=== PATIENT | female | born 1940 | race Caucasian/White ===

== ENCOUNTER → 2017-07-18 | Outpatient (CLI) | payer OTHER | END | disposition home or self-care (01) | LOC: CP 08:50 | DX: J44.1 Chronic obstructive pulmonary disease with (acute) exacerbation (principal) ==

== ENCOUNTER 2020-03-21 19:53 | Inpatient (IN) | payer MEDICARE ==
[~2020-03-21] VITALS: Ht 157.4 cm; Wt 47.6 kg
[2020-03-21 19:55] VITALS: BP 114/66
[2020-03-21] MEDS ORDERED: ALENDRONATE SOD70 M1 PO (22:04)
[2020-03-21] MEDS ORDERED: SERTRALINE HYDR25 MG PO (22:05)
[2020-03-21] MEDS ORDERED: OXYCODONE HCL5 MG PO (22:05)
[2020-03-21] MEDS ORDERED: DEXAMETHASONE4 MG PO (22:05)
[2020-03-21] MEDS ORDERED: LORAZEPAM0.5 MG PO (22:06)
[2020-03-21] MEDS ORDERED: ANORO ELLIPTA1 EACH PO (22:06)
[2020-03-21] MEDS ORDERED: OMEPRAZOLE40 MG PO (22:07)
[2020-03-21] MEDS ORDERED: HYDROXYUREA500 MG PO (22:07)
[2020-03-21] MEDS ORDERED: ATORVASTATIN CA20 M1 PO (22:07)
[2020-03-21 22:08] VITALS: BP 115/50
[2020-03-21 23:26] VITALS: BP 90/56
[2020-03-22] VITALS (15 sets, daily range): BP systolic 86–110; BP diastolic 30–67
[2020-03-22 04:25] LABS: MEAN CELL VOLUME 113.7 fl (81.0-99.0); MEAN CORPUSCULAR HGB 35.7 pg (27.0-31.0); MEAN CORPUSCULAR HGB CONC 31.4 g/dl (33.0-37.0); MEAN PLATELET VOLUME 9.4 fl (9.6-12.3); PLATELET COUNT AUTOMATED 276 10*3/uL (130-400); RED BLOOD COUNT 2.55 10*6/uL (4.10-5.10); RED CELL DISTRI WIDTH 13.5 % (0-14.5); WHITE BLOOD COUNT 33.4 10*3/uL (4.8-10.8)
[2020-03-22 04:42] LABS: ALBUMIN 2.8 gm/dl (3.1-4.5); ALKALINE PHOSPHATASE 57 U/L (45-117); BUN 20 mg/dl (7-24); CHLORIDE 105 mmol/L (98-107); CREATININE 0.69 mg/dL (0.55-1.02); POTASSIUM 4.2 mmol/L (3.5-5.1); SGOT/AST 14 IU/L (3-35); SGPT/ALT 34 U/L (12-78); SODIUM 139 mmol/L (136-145); TOTAL PROTEIN 5.1 gm/dL (6.4-8.2)
[2020-03-22 04:59] LABS: TOTAL CELLS COUNTED 100 #CELLS
[2020-03-22 05:00] LABS: PLATELET SUFFICIENCY NORMAL (NORMAL)
[2020-03-23] VITALS (10 sets, daily range): BP systolic 93–135; BP diastolic 48–60
[2020-03-23 06:49] LABS: MEAN CELL VOLUME 115.3 fl (81.0-99.0); MEAN CORPUSCULAR HGB 36.4 pg (27.0-31.0); MEAN CORPUSCULAR HGB CONC 31.5 g/dl (33.0-37.0); MEAN PLATELET VOLUME 9.7 fl (9.6-12.3); RED BLOOD COUNT 1.76 10*6/uL (4.10-5.10); RED CELL DISTRI WIDTH 13.7 % (0-14.5); WHITE BLOOD COUNT 15.7 10*3/uL (4.8-10.8)
[2020-03-23 07:01] LABS: HEMATOCRIT 20.3 % (37.0-47.0)
[2020-03-23 07:15] LABS: OVALOCYTES FEW; PLATELET SUFFICIENCY NORMAL (NORMAL); TOTAL CELLS COUNTED 100 #CELLS; TOXIC GRANULATION SLIGHT
[2020-03-23 07:16] LABS: PLATELET COUNT AUTOMATED 151 10*3/uL (130-400)
[2020-03-23 16:40] LABS: HEMATOCRIT 24.7 % (37.0-47.0); MEAN CORPUSCULAR HGB 34.3 pg (27.0-31.0); MEAN PLATELET VOLUME 9.6 fl (9.6-12.3); PLATELET COUNT AUTOMATED 141 10*3/uL (130-400); RED CELL DISTRI WIDTH 16.3 % (0-14.5); WHITE BLOOD COUNT 16.7 10*3/uL (4.8-10.8)
[2020-03-23 16:58] LABS: MEAN CELL VOLUME 107.4 fl (81.0-99.0)
[2020-03-23 17:04] LABS: PLATELET SUFFICIENCY NORMAL (NORMAL); TOTAL CELLS COUNTED 100 #CELLS
[2020-03-24] VITALS: BP 102/57
[2020-03-24 08:00] VITALS: BP 113/56
[2020-03-24 12:00] VITALS: BP 127/69
[2020-03-24 16:00] VITALS: BP 117/48
[2020-03-24 20:00] VITALS: BP 105/54
[2020-03-25] VITALS: BP 111/54
[2020-03-25 06:17] LABS: HEMATOCRIT 23.3 % (37.0-47.0); MEAN CELL VOLUME 106.9 fl (81.0-99.0); MEAN CORPUSCULAR HGB 33.9 pg (27.0-31.0); MEAN CORPUSCULAR HGB CONC 31.8 g/dl (33.0-37.0); MEAN PLATELET VOLUME 9.5 fl (9.6-12.3); PLATELET COUNT AUTOMATED 164 10*3/uL (130-400); RED BLOOD COUNT 2.18 10*6/uL (4.10-5.10); RED CELL DISTRI WIDTH 15.2 % (0-14.5); WHITE BLOOD COUNT 13.7 10*3/uL (4.8-10.8)
[2020-03-25 07:15] LABS: TOTAL CELLS COUNTED 100 #CELLS
[2020-03-25 07:16] LABS: OVALOCYTES FEW; PLATELET SUFFICIENCY NORMAL (NORMAL)
[2020-03-25 08:00] VITALS: BP 149/51
[2020-03-25 12:00] VITALS: BP 146/74
[2020-03-25 16:00] VITALS: BP 146/68
[2020-03-25 20:00] VITALS: BP 110/59
[2020-03-26] VITALS (10 sets, daily range): BP systolic 105–131; BP diastolic 50–66
[2020-03-26 06:23] LABS: HEMATOCRIT 22.1 % (37.0-47.0); MEAN CORPUSCULAR HGB 34.8 pg (27.0-31.0); MEAN CORPUSCULAR HGB CONC 31.2 g/dl (33.0-37.0); MEAN PLATELET VOLUME 9.6 fl (9.6-12.3); PLATELET COUNT AUTOMATED 175 10*3/uL (130-400); RED BLOOD COUNT 1.98 10*6/uL (4.10-5.10); RED CELL DISTRI WIDTH 15.4 % (0-14.5); WHITE BLOOD COUNT 11.5 10*3/uL (4.8-10.8)
[2020-03-26 06:27] LABS: MEAN CELL VOLUME 111.6 fl (81.0-99.0)
[2020-03-26 07:30] LABS: OVALOCYTES FEW; PLATELET SUFFICIENCY NORMAL (NORMAL); POLYCHROMASIA SLIGHT; TOTAL CELLS COUNTED 100 #CELLS
[2020-03-26 07:31] LABS: TOXIC GRANULATION SLIGHT
[2020-03-26 14:54] LABS: HEMATOCRIT 27.9 % (37.0-47.0); MEAN CORPUSCULAR HGB 33.1 pg (27.0-31.0); MEAN CORPUSCULAR HGB CONC 32.3 g/dl (33.0-37.0); MEAN PLATELET VOLUME 9.2 fl (9.6-12.3); NUCLEATED RED BLOOD CELL 0.2 % (0.0-0.0); PLATELET COUNT AUTOMATED 174 10*3/uL (130-400); RED BLOOD COUNT 2.72 10*6/uL (4.10-5.10); RED CELL DISTRI WIDTH 19.2 % (0-14.5); WHITE BLOOD COUNT 12.9 10*3/uL (4.8-10.8)
[2020-03-26 14:58] LABS: MEAN CELL VOLUME 102.6 fl (81.0-99.0)
[2020-03-26 15:16] LABS: PLATELET SUFFICIENCY NORMAL (NORMAL); TOTAL CELLS COUNTED 100 #CELLS
[2020-03-27] VITALS: BP 123/61
[2020-03-27 08:00] VITALS: BP 120/64
[2020-03-27 08:33] LABS: BASO % 0.2 % (0.0-1.0); HEMATOCRIT 28.2 % (37.0-47.0); LYMPH # 0.7 10*3/uL (1.3-4.4); LYMPH % 5.8 % (27.0-41.0); MEAN CELL VOLUME 104.4 fl (81.0-99.0); MEAN CORPUSCULAR HGB 33.7 pg (27.0-31.0); MEAN CORPUSCULAR HGB CONC 32.3 g/dl (33.0-37.0); MONO # 0.7 10*3/uL (0.1-1.0); MONO % 6.3 % (3.0-9.0); NEUT % 86.3 % (47.0-73.0); PLATELET COUNT AUTOMATED 176 10*3/uL (130-400); RED CELL DISTRI WIDTH 18.5 % (0-14.5); WHITE BLOOD COUNT 11.6 10*3/uL (4.8-10.8)
[2020-03-27] MEDS ORDERED: LORAZEPAM0.5 MG PO (10:36)
[2020-03-27] MEDS ORDERED: HYDROCODONE-AC1 EAC1 PO (10:36)
[2020-03-27] MEDS ORDERED: ASPIRIN ADULT L81 M2 PO (10:36)
[2020-03-27] MEDS ORDERED: VITAMIN D350 MC2 PO (10:36)
[2020-03-27 12:00] VITALS: BP 125/55
== END 2020-03-27 15:05 | DRG 480 ==
LOC: ED 19:53 → 5E 21:54 → EDHOLD 21:54 → 5E 03-22 08:53
PROVIDERS: Internal Medicine; Orthopaedic Surgery; Registered Nurse; Social Worker Clinical; Student in an Organized Health Care Education/Training Program; ADMIT Internal Medicine; ATTEND Internal Medicine
PROC: 0QS706Z Reposition Left Upper Femur with Intramedullary Internal Fixation Device, Open Approach (ICD-10-PCS; principal; 2020-03-22)
PROC: 30233N1 Transfusion of Nonautologous Red Blood Cells into Peripheral Vein, Percutaneous Approach (ICD-10-PCS; 2020-03-23)
DX: S72.142A Displaced intertrochanteric fracture of left femur, initial encounter for closed fracture (principal); E43 Unspecified severe protein-calorie malnutrition; J96.10 Chronic respiratory failure, unspecified whether with hypoxia or hypercapnia; Z68.1 Body mass index [BMI] 19.9 or less, adult; D53.0 Protein deficiency anemia; M54.5 Low back pain; M81.0 Age-related osteoporosis without current pathological fracture; J44.9 Chronic obstructive pulmonary disease, unspecified; W01.0XXA Fall on same level from slipping, tripping and stumbling without subsequent striking against object, initial encounter; Y93.01 Activity, walking, marching and hiking; G89.29 Other chronic pain; Z96.642 Presence of left artificial hip joint; K21.9 Gastro-esophageal reflux disease without esophagitis; E78.5 Hyperlipidemia, unspecified; Z20.822 Contact with and (suspected) exposure to COVID-19; Z99.81 Dependence on supplemental oxygen; Z79.899 Other long term (current) drug therapy; Y92.89 Other specified places as the place of occurrence of the external cause; Y99.8 Other external cause status; Z90.710 Acquired absence of both cervix and uterus; Z98.891 History of uterine scar from previous surgery; Z87.891 Personal history of nicotine dependence

== ENCOUNTER → 2020-04-05 | Outpatient (CLI) | payer MEDICARE ==
[~2020-04-05] MED LIST: ALENDRONATE SOD70 M1 PO; ANORO ELLIPTA1 EACH PO; ASPIRIN ADULT L81 M2 PO; ATORVASTATIN CA20 M1 PO; DEXAMETHASONE4 MG PO; HYDROCODONE-AC1 EAC1 PO; HYDROXYUREA500 MG PO; LORAZEPAM0.5 MG PO; OMEPRAZOLE40 MG PO; OXYCODONE HCL5 MG PO; SERTRALINE HYDR25 MG PO; VITAMIN D350 MC2 PO
== END | disposition home or self-care (01) ==
LOC: ORTHO 00:18
PROVIDERS: ATTEND Orthopaedic Surgery
DX: S72.142D Displaced intertrochanteric fracture of left femur, subsequent encounter for closed fracture with routine healing (principal); X58.XXXD Exposure to other specified factors, subsequent encounter

== ENCOUNTER → 2020-05-03 | Outpatient (CLI) | payer MEDICARE | END | disposition home or self-care (01) | LOC: ORTHO 00:20 | PROVIDERS: ATTEND Orthopaedic Surgery | DX: M85.88 Other specified disorders of bone density and structure, other site (principal); S72.142D Displaced intertrochanteric fracture of left femur, subsequent encounter for closed fracture with routine healing; X58.XXXD Exposure to other specified factors, subsequent encounter ==

== ENCOUNTER 2021-10-18 06:42 | Inpatient (IN) | payer MEDICARE, MEDICAID ==
[2021-10-18] VITALS (24 sets, daily range): BP systolic 84–124; BP diastolic 33–82
[~2021-10-18] VITALS: Ht 160 cm; Wt 34.5 kg
[2021-10-18 07:26] LABS: MEAN CELL VOLUME 106.8 fl (81.0-99.0); MEAN CORPUSCULAR HGB 30.7 pg (27.0-31.0); MEAN CORPUSCULAR HGB CONC 28.7 g/dl (33.0-37.0); MEAN PLATELET VOLUME 9.2 fl (9.6-12.3); NUCLEATED RED BLOOD CELL 0.1 10*3/uL (0.0-0.0); NUCLEATED RED BLOOD CELL 0.9 % (0.0-0.0); PLATELET COUNT AUTOMATED 54 10*3/uL (130-400); RED BLOOD COUNT 0.88 10*6/uL (4.10-5.10); RED CELL DISTRI WIDTH 22.5 % (0-14.5); WHITE BLOOD COUNT 14.1 10*3/uL (4.8-10.8)
[2021-10-18 07:28] LABS: MANUAL DIFF REFLEX YES
[2021-10-18 07:29] LABS: HEMATOCRIT 9.4 % (37.0-47.0)
[2021-10-18 07:42] LABS: CREATININE 1.43 mg/dL (0.55-1.02); POTASSIUM 3.7 mmol/L (3.5-5.1); TOTAL PROTEIN 5.8 gm/dL (6.4-8.2)
[2021-10-18 07:59] LABS: OVALOCYTES FEW; PLATELET SUFFICIENCY LOW (NORMAL); POLYCHROMASIA SLIGHT; ROULEAUX SLIGHT; SCHISTOCYTES FEW; TOTAL CELLS COUNTED 100 #CELLS
[2021-10-18 08:20] LABS: INTERNATIONAL NORM RATIO 1.1 (2.0-3.5)
[2021-10-18] MEDS ORDERED: ELIQUIS5 M1 PO (16:25)
[2021-10-18] MEDS ORDERED: ARICEPT5 M1 PO (16:25)
[2021-10-18] MEDS ORDERED: PROVENTIL HFA6.7 GM INH (16:27)
[2021-10-18] MEDS ORDERED: ZOLOFT50 MG PO (16:29)
[2021-10-18] MEDS ORDERED: XANAX0.25 MG PO (16:37)
[2021-10-18] MEDS ORDERED: PROBIOTIC (16:38)
[2021-10-18] MEDS ORDERED: CRANBERRY (16:38)
[2021-10-18] MEDS ORDERED: BACTRIM (17:29)
[2021-10-18 19:08] LABS: BILIRUBIN Negative (Negative); BLOOD 2+ (Negative); CLARITY Clear (Clear); COLOR Yellow (Yellow); GLUCOSE Negative (Negative); KETONE Negative (Negative); LEUKO ESTERASE Negative (Negative); NITRITE Negative (Negative); PH 6.5 (4.5-8.0)
[2021-10-18 19:10] LABS: HEMATOCRIT 25.5 % (37.0-47.0); MEAN CORPUSCULAR HGB CONC 34.5 g/dl (33.0-37.0); MEAN PLATELET VOLUME 9.5 fl (9.6-12.3); NUCLEATED RED BLOOD CELL 0.3 % (0.0-0.0); RED BLOOD COUNT 2.84 10*6/uL (4.10-5.10); RED CELL DISTRI WIDTH 14.8 % (0-14.5); WHITE BLOOD COUNT 11.9 10*3/uL (4.8-10.8)
[2021-10-18 19:14] LABS: MEAN CELL VOLUME 89.8 fl (81.0-99.0)
[2021-10-18 19:16] LABS: MANUAL DIFF REFLEX YES; PLATELET COUNT AUTOMATED 28 10*3/uL (130-400)
[2021-10-18 19:22] LABS: BUN 42 mg/dl (7-24); CHLORIDE 104 mmol/L (98-107); CREATININE 0.92 mg/dL (0.55-1.02); SODIUM 135 mmol/L (136-145)
[2021-10-18 19:25] LABS: BACTERIA 1+; RBC 16-20 rbc/hpf (0-2)
[2021-10-18 19:37] LABS: PLATELET SUFFICIENCY LOW (NORMAL); TOTAL CELLS COUNTED 100 #CELLS
[2021-10-18 19:38] LABS: BURR CELLS FEW
[2021-10-18 19:39] LABS: MICROCYTOSIS SLIGHT
[2021-10-18 23:23] LABS: HEMATOCRIT 24.8 % (37.0-47.0); MEAN CELL VOLUME 91.5 fl (81.0-99.0); MEAN CORPUSCULAR HGB CONC 33.9 g/dl (33.0-37.0); MEAN PLATELET VOLUME 9.2 fl (9.6-12.3); NUCLEATED RED BLOOD CELL 0.4 % (0.0-0.0); RED BLOOD COUNT 2.71 10*6/uL (4.10-5.10); RED CELL DISTRI WIDTH 15.6 % (0-14.5)
[2021-10-18 23:46] LABS: MANUAL DIFF REFLEX YES; PLATELET COUNT AUTOMATED 25 10*3/uL (130-400)
[2021-10-18 23:49] LABS: MICROCYTOSIS SLIGHT; PLATELET SUFFICIENCY LOW (NORMAL); TOTAL CELLS COUNTED 100 #CELLS
[2021-10-19] VITALS (16 sets, daily range): BP systolic 91–127; BP diastolic 33–61
[2021-10-19 05:37] LABS: ALKALINE PHOSPHATASE 49 U/L (45-117); BUN 32 mg/dl (7-24); CHLORIDE 108 mmol/L (98-107); CHOLESTEROL 113 mg/dL (<200); CREATININE 0.73 mg/dL (0.55-1.02); LDL CHOLESTEROL 48 mg/dL (9-159); POTASSIUM 4.1 mmol/L (3.5-5.1); SGOT/AST 18 IU/L (3-35); SGPT/ALT 13 U/L (12-78); SODIUM 142 mmol/L (136-145); TOTAL PROTEIN 5.1 gm/dL (6.4-8.2); TRIGLYCERIDES 109 mg/dl (<150)
[2021-10-19 05:40] LABS: FREE T4 0.82 ng/dl (0.76-1.46)
[2021-10-19 06:17] LABS: ACT PARTIAL THROMBO TIME 21.7 SECONDS (20.0-32.1)
[2021-10-19 06:53] LABS: HEMATOCRIT 24.6 % (37.0-47.0); MEAN CELL VOLUME 92.8 fl (81.0-99.0); MEAN CORPUSCULAR HGB 30.9 pg (27.0-31.0); MEAN CORPUSCULAR HGB CONC 33.3 g/dl (33.0-37.0); MEAN PLATELET VOLUME 10.7 fl (9.6-12.3); NUCLEATED RED BLOOD CELL 0.3 % (0.0-0.0); RED BLOOD COUNT 2.65 10*6/uL (4.10-5.10); RED CELL DISTRI WIDTH 16.1 % (0-14.5)
[2021-10-19 06:57] LABS: MANUAL DIFF REFLEX YES
[2021-10-19 06:58] LABS: PLATELET COUNT AUTOMATED 83 10*3/uL (130-400)
[2021-10-19 07:00] LABS: TOTAL CELLS COUNTED 100 #CELLS
[2021-10-19 07:01] LABS: BURR CELLS FEW; OVALOCYTES FEW; PLATELET SUFFICIENCY LOW (NORMAL); POLYCHROMASIA SLIGHT; ROULEAUX SLIGHT; SCHISTOCYTES FEW; TOXIC GRANULATION SLIGHT
[2021-10-19 07:58] LABS: VITAMIN D, 25-HYDROXY 70.1 ng/mL (30-100)
[2021-10-20] VITALS: BP 119/52
[2021-10-20 05:13] LABS: CHLORIDE 108 mmol/L (98-107); CREATININE 0.47 mg/dL (0.55-1.02); SGOT/AST 18 IU/L (3-35); SGPT/ALT 12 U/L (12-78); SODIUM 143 mmol/L (136-145)
[2021-10-20 05:14] LABS: ALKALINE PHOSPHATASE 50 U/L (45-117); TOTAL PROTEIN 4.7 gm/dL (6.4-8.2)
[2021-10-20 05:18] LABS: BUN 13 mg/dl (7-24)
[2021-10-20 06:12] LABS: HEMATOCRIT 24.7 % (37.0-47.0); MEAN CELL VOLUME 93.6 fl (81.0-99.0); MEAN CORPUSCULAR HGB 31.4 pg (27.0-31.0); MEAN CORPUSCULAR HGB CONC 33.6 g/dl (33.0-37.0); MEAN PLATELET VOLUME 10.9 fl (9.6-12.3); NUCLEATED RED BLOOD CELL 0.3 % (0.0-0.0); PLATELET COUNT AUTOMATED 68 10*3/uL (130-400); RED BLOOD COUNT 2.64 10*6/uL (4.10-5.10); RED CELL DISTRI WIDTH 16.5 % (0-14.5); WHITE BLOOD COUNT 9.7 10*3/uL (4.8-10.8)
[2021-10-20 06:17] LABS: MANUAL DIFF REFLEX YES
[2021-10-20 06:43] LABS: TOTAL CELLS COUNTED 100 #CELLS
[2021-10-20 06:44] LABS: BURR CELLS FEW; OVALOCYTES FEW; PLATELET SUFFICIENCY LOW (NORMAL); POLYCHROMASIA SLIGHT; SCHISTOCYTES FEW; TOXIC GRANULATION SLIGHT
[2021-10-20 08:00] VITALS: BP 114/56
[2021-10-20 12:00] VITALS: BP 115/47
[2021-10-20 16:00] VITALS: BP 125/52
[2021-10-20 20:00] VITALS: BP 113/62
[2021-10-21] VITALS: BP 113/27
[2021-10-21 03:06] LABS: TOTAL PROTEIN, SERUM 4.6 g/dL (6.0-8.5)
[2021-10-21 05:58] LABS: BUN 5 mg/dl (7-24); CHLORIDE 109 mmol/L (98-107); CREATININE 0.39 mg/dL (0.55-1.02); POTASSIUM 3.5 mmol/L (3.5-5.1); SODIUM 142 mmol/L (136-145)
[2021-10-21 06:13] LABS: HEMATOCRIT 27.4 % (37.0-47.0); MEAN CORPUSCULAR HGB CONC 31.8 g/dl (33.0-37.0); MEAN PLATELET VOLUME 10.6 fl (9.6-12.3); NUCLEATED RED BLOOD CELL 0.2 % (0.0-0.0); PLATELET COUNT AUTOMATED 66 10*3/uL (130-400); RED BLOOD COUNT 2.81 10*6/uL (4.10-5.10); RED CELL DISTRI WIDTH 16.4 % (0-14.5); WHITE BLOOD COUNT 9.1 10*3/uL (4.8-10.8)
[2021-10-21 06:20] LABS: MANUAL DIFF REFLEX YES; MEAN CELL VOLUME 97.5 fl (81.0-99.0)
[2021-10-21 07:08] LABS: PLATELET SUFFICIENCY LOW (NORMAL); TOTAL CELLS COUNTED 100 #CELLS
[2021-10-21 08:00] VITALS: BP 130/47
[2021-10-21 12:00] VITALS: BP 112/41
[2021-10-21 16:00] VITALS: BP 133/66
[2021-10-21 16:07] LABS: A/G RATIO 1.4 (0.7-1.7); ALBUMIN 2.7 g/dL (2.9-4.4); ALPHA-1-GLOBULIN 0.3 g/dL (0.0-0.4); ALPHA-2-GLOBULIN 0.5 g/dL (0.4-1.0); BETA GLOBULIN 0.7 g/dL (0.7-1.3); GAMMA GLOBULIN 0.5 g/dL (0.4-1.8); GLOBULIN, TOTAL 1.9 g/dL (2.2-3.9); M-SPIKE 0.1 g/dL (Not Observed)
[2021-10-22] VITALS: BP 128/55
[2021-10-22 04:00] VITALS: BP 128/55
[2021-10-22 08:00] VITALS: BP 136/71
[2021-10-22 12:00] VITALS: BP 107/51
[2021-10-22 14:00] VITALS: BP 138/47
[2021-10-22 20:00] VITALS: BP 106/51
[2021-10-23] VITALS: BP 109/56
[2021-10-23 05:40] LABS: BUN 2 mg/dl (7-24); CHLORIDE 109 mmol/L (98-107); CREATININE 0.43 mg/dL (0.55-1.02); POTASSIUM 3.5 mmol/L (3.5-5.1); SODIUM 145 mmol/L (136-145)
[2021-10-23 06:21] LABS: HEMATOCRIT 25.9 % (37.0-47.0); MEAN CELL VOLUME 98.1 fl (81.0-99.0); MEAN CORPUSCULAR HGB 31.4 pg (27.0-31.0); MEAN PLATELET VOLUME 11.2 fl (9.6-12.3); RED BLOOD COUNT 2.64 10*6/uL (4.10-5.10)
[2021-10-23 06:31] LABS: MANUAL DIFF REFLEX YES; PLATELET COUNT AUTOMATED 91 10*3/uL (130-400)
[2021-10-23 07:04] LABS: BASOPHILS 2 % (0-1); BURR CELLS FEW; OVALOCYTES FEW; PLATELET SUFFICIENCY LOW (NORMAL); POLYCHROMASIA SLIGHT; TOTAL CELLS COUNTED 100 #CELLS; TOXIC GRANULATION SLIGHT; VACUOLATION OF NEUTROPHILS SLIGHT
[2021-10-23 08:00] VITALS: BP 132/42
[2021-10-23 12:00] VITALS: BP 111/57; BP 116/39
[2021-10-23] MEDS ORDERED: VANCOMYCIN HCL125 MG PO (15:51)
== END 2021-10-23 16:39 | disposition home health service (06) | DRG 871 ==
LOC: ED 06:42 → 4E 08:21 → ICCU 08:21 → EDHOLD 08:21 → ICCU 08:39 → 4E 10-21 07:08
PROVIDERS: Emergency Medicine; Internal Medicine; Registered Nurse; ADMIT Internal Medicine; ATTEND Internal Medicine
PROC: 30233N1 Transfusion of Nonautologous Red Blood Cells into Peripheral Vein, Percutaneous Approach (ICD-10-PCS; 2021-10-18)
PROC: 3E0G8GC Introduction of Other Therapeutic Substance into Upper GI, Via Natural or Artificial Opening Endoscopic (ICD-10-PCS; principal; 2021-10-19)
PROC: 0W3P8ZZ Control Bleeding in Gastrointestinal Tract, Via Natural or Artificial Opening Endoscopic (ICD-10-PCS; 2021-10-19)
PROC: 30233R1 Transfusion of Nonautologous Platelets into Peripheral Vein, Percutaneous Approach (ICD-10-PCS; 2021-10-19)
DX: A41.9 Sepsis, unspecified organism (principal); E43 Unspecified severe protein-calorie malnutrition; N17.0 Acute kidney failure with tubular necrosis; K29.71 Gastritis, unspecified, with bleeding; E87.2 Acidosis; D61.818 Other pancytopenia; A04.72 Enterocolitis due to Clostridium difficile, not specified as recurrent; D62 Acute posthemorrhagic anemia; R64 Cachexia; Z68.1 Body mass index [BMI] 19.9 or less, adult; R65.20 Severe sepsis without septic shock; Z96.642 Presence of left artificial hip joint; E78.5 Hyperlipidemia, unspecified; K21.9 Gastro-esophageal reflux disease without esophagitis; J44.9 Chronic obstructive pulmonary disease, unspecified; I95.89 Other hypotension; R73.9 Hyperglycemia, unspecified; G89.29 Other chronic pain; M54.40 Lumbago with sciatica, unspecified side; R62.7 Adult failure to thrive; R41.0 Disorientation, unspecified; F03.90 Unspecified dementia, unspecified severity, without behavioral disturbance, psychotic disturbance, mood disturbance, and anxiety; Z20.822 Contact with and (suspected) exposure to COVID-19; Z90.710 Acquired absence of both cervix and uterus; Z98.891 History of uterine scar from previous surgery